=== PATIENT | female | born 1995 | race Caucasian/White ===

== ENCOUNTER 2017-03-10 15:02 | Emergency (ER) | payer OTHER, MEDICAID ==
[~2017-03-10 15:02] MED LIST: AZIT250T3 PO; CALNTAB PO; CIPR3.5O LEFT EYE
[2017-03-10 15:19] VITALS: BP 134/76; PULSE 88; RESP 16; TEMP 98; O2SAT 97
[2017-03-10] MEDS ORDERED: ROBA500T PO (15:38)
[2017-03-10] MEDS ORDERED: NAPR500T PO (15:38)
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
== END 2017-03-10 15:45 | disposition home or self-care (01) ==
LOC: PHEFT 15:02
DX: S16.1XXA Strain of muscle, fascia and tendon at neck level, initial encounter (principal); M54.6 Pain in thoracic spine; V89.2XXA Person injured in unspecified motor-vehicle accident, traffic, initial encounter
CPT/HCPCS: 99283